=== PATIENT | male | born 1970 | race African-American/Black ===

== ENCOUNTER 2019-12-13 02:54 | Emergency (ER) | payer SELFPAY ==
[~2019-12-13] VITALS: Wt 65.8 kg
== END 2019-12-13 06:18 | disposition home or self-care (01) ==
LOC: ED 02:54
DX: T40.2X1A Poisoning by other opioids, accidental (unintentional), initial encounter (principal); F17.200 Nicotine dependence, unspecified, uncomplicated; Y92.89 Other specified places as the place of occurrence of the external cause

== ENCOUNTER 2020-09-04 11:00 | Inpatient (IN) | payer OTHER ==
[~2020-09-04] VITALS: Ht 175.2 cm; Wt 62.4 kg
--- NOTE | 2020-09-04 11:30 | NUR ---
A 50, admitted to , under the services of ISAIAS Govea DO with a diagnosis of ALCOHOL WITHDRAWAL. Chief complaint is ALCOHOL WITHDRAWAL. Patient arrived via ambulatory from [place]. Initial assessment completed. Vital signs taken and recorded. See assessment for past medical history, medications and allergies. Patient and/or family oriented to unit. [facility] visitation policy reviewed. Clothing/patient valuable form completed. LUCAS SOSA
--- NOTE | 2020-09-04 11:31 | NUR ---
PATIENT MEETS [facility]. CIWA=20. PATIENT IS GOING TO [facility] FOR HIS AFTERCARE PLAN. THEY WILL BE PROVIDEING TRANSPORTATION POST DISCHARGE. 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
[2020-09-04] MEDS ORDERED: TRAZODONE100 MG PO (11:35)
[2020-09-04] MEDS ORDERED: SEROQUEL100 MG PO (11:35)
[2020-09-04 11:53] VITALS: BP 127/68
[2020-09-04 12:00] LABS: BASO % 0.2 % (0.0-1.0); EOS # 0.1 10*3/uL (0.0-0.4); EOS % 1.7 % (1.0-4.0); HEMATOCRIT 42.5 % (42.0-52.0); LYMPH # 1.2 10*3/uL (1.3-4.4); LYMPH % 30.7 % (27.0-41.0); MEAN CELL VOLUME 69.6 fl (80.0-94.0); MEAN CORPUSCULAR HGB 21.6 pg (27.0-31.0); MEAN CORPUSCULAR HGB CONC 31.1 g/dl (33.0-37.0); MEAN PLATELET VOLUME 11.2 fl (9.6-12.3); MONO # 0.3 10*3/uL (0.1-1.0); MONO % 7.7 % (3.0-9.0); NEUT # 2.4 10*3/uL (2.3-7.9); NEUT % 59.5 % (47.0-73.0); PLATELET COUNT AUTOMATED 181 10*3/uL (130-400); RED BLOOD COUNT 6.11 10*6/uL (4.50-5.90); RED CELL DISTRI WIDTH 16.4 % (0-14.5)
[2020-09-04 12:15] LABS: ALBUMIN 3.3 gm/dl (3.1-4.5); ALKALINE PHOSPHATASE 65 U/L (45-117); BUN 20 mg/dl (7-24); CHLORIDE 108 mmol/L (98-107); CREATININE 1.04 mg/dL (0.70-1.30); POTASSIUM 3.7 mmol/L (3.5-5.1); SGOT/AST 52 IU/L (3-35); SGPT/ALT 47 U/L (12-78); SODIUM 140 mmol/L (136-145); TOTAL PROTEIN 7.1 gm/dL (6.4-8.2)
[2020-09-04 16:00] VITALS: BP 119/87
[2020-09-04 20:00] VITALS: BP 127/77
[2020-09-05] VITALS: BP 135/87
[2020-09-05 08:00] VITALS: BP 125/87
[2020-09-05 12:00] VITALS: BP 129/85
[2020-09-05 16:00] VITALS: BP 142/76
--- NOTE | 2020-09-05 18:26 | NUR ---
PATIENT REFUSES TO PROVIDE URINE SPECIMEN. THE PATIENT IS URINATING.
[2020-09-05 20:00] VITALS: BP 126/79
[2020-09-05 21:33] LABS: BILIRUBIN Negative (Negative); BLOOD Negative (Negative); CLARITY Clear (Clear); COLOR Yellow (Yellow); GLUCOSE Negative (Negative); KETONE Trace (Negative); LEUKO ESTERASE Negative (Negative); NITRITE Negative (Negative); SPECIFIC GRAVITY 1.025 (1.001-1.030)
[2020-09-05 21:41] LABS: URINE AMPHETAMINES > 1000 (1000ng/ml); URINE BARBITURATES < 200 (200ng/ml); URINE BENZODIAZEPINES > 200 (200ng/ml); URINE CANNABINOIDS (THC) < 50 (50ng/ml); URINE COCAINE > 300 (300ng/ml); URINE METHADONE < 300 (300ng/ml); URINE OPIATES < 300 (300ng/ml)
[2020-09-05 21:44] LABS: URINE PHENCYCLIDINE < 25 (25ng/ml)
[2020-09-05 21:50] LABS: BACTERIA TRACE; EPITHELIAL CELLS 0-2; MUCOUS 1+; RBC 0-2 rbc/hpf (0-2)
[2020-09-06] VITALS: BP 129/81
[2020-09-06 08:00] VITALS: BP 123/70
--- NOTE | 2020-09-06 09:24 | NUR ---
ASSESSMENT COMPLETE. pATIENT GIVEN ROBAXIN FOR RIGHT KNEE PAIN
[2020-09-06 12:00] VITALS: BP 130/78
[2020-09-06 16:00] VITALS: BP 131/78
[2020-09-06 20:00] VITALS: BP 119/79
[2020-09-07] VITALS: BP 130/75
[2020-09-07 08:00] VITALS: BP 113/74
--- NOTE | 2020-09-07 08:25 | NUR ---
[facility] STAFF IS WORKING ON SETTING UP TRANSPORTATION FOR PATIENT TO GO TO [facility]. BERNA VEGA B.A. THIRD MATE
[2020-09-07 12:00] VITALS: BP 120/70
[2020-09-07 16:00] VITALS: BP 111/75
[2020-09-07 20:00] VITALS: BP 105/64
[2020-09-08] VITALS: BP 110/65
[2020-09-08 03:48] VITALS: BP 118/78
[2020-09-08 06:35] LABS: BASO % 0.8 % (0.0-1.0); EOS # 0.1 10*3/uL (0.0-0.4); EOS % 3.8 % (1.0-4.0); HEMATOCRIT 41.6 % (42.0-52.0); LYMPH # 1.3 10*3/uL (1.3-4.4); LYMPH % 35.7 % (27.0-41.0); MEAN CELL VOLUME 69.7 fl (80.0-94.0); MEAN CORPUSCULAR HGB 21.4 pg (27.0-31.0); MEAN CORPUSCULAR HGB CONC 30.8 g/dl (33.0-37.0); MEAN PLATELET VOLUME 10.6 fl (9.6-12.3); MONO # 0.3 10*3/uL (0.1-1.0); MONO % 9.1 % (3.0-9.0); NEUT # 1.8 10*3/uL (2.3-7.9); NEUT % 50.1 % (47.0-73.0); PLATELET COUNT AUTOMATED 203 10*3/uL (130-400); RED BLOOD COUNT 5.97 10*6/uL (4.50-5.90); RED CELL DISTRI WIDTH 17.1 % (0-14.5); WHITE BLOOD COUNT 3.6 10*3/uL (4.8-10.8)
[2020-09-08 06:42] LABS: CREATININE 1.01 mg/dL (0.70-1.30)
--- NOTE | 2020-09-08 06:51 | NUR ---
LARGE EMESIS OF YELLOW LIQUID. COMPLETE BATH DONE AND LINENS CHANGED.
[2020-09-08 08:00] VITALS: BP 124/73
--- NOTE | 2020-09-08 09:42 | NUR ---
PATIENT WILL BE GOING TO [facility] ONCE DISCHARGED FROM [facility]. [facility] STAFF WILL CONTACT FACILITY ONCE PATIENT IS DISCHARGED. FAMILY REPORTS THAT THEY WILL PROVIDE TRANSPORATION IF NEEDED. PATIENT AGREES AND UNDERSTANDS HIS AFTERCARE PLAN. BERNA VEGA B.A. 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
--- NOTE | 2020-09-08 11:10 | NUR ---
NOTIFIED DR. MEADE OF POSITIVE ORTHOS. SEE NEW ORDER.
[2020-09-08 12:00] VITALS: BP 114/68
--- NOTE | 2020-09-08 15:26 | NUR ---
SPOKE WITH DASHAWN IN [facility] AND NOTIFIED HER OF CONSULT FOR [facility], FOR TRAZADONE MANAGEMENT.
[2020-09-08 15:33] LABS: BASO % 0.4 % (0.0-1.0); EOS # 0.1 10*3/uL (0.0-0.4); EOS % 2.6 % (1.0-4.0); LYMPH # 1.5 10*3/uL (1.3-4.4); LYMPH % 33.1 % (27.0-41.0); MEAN CELL VOLUME 69.8 fl (80.0-94.0); MEAN CORPUSCULAR HGB 21.6 pg (27.0-31.0); MONO # 0.3 10*3/uL (0.1-1.0); MONO % 6.5 % (3.0-9.0); NEUT # 2.6 10*3/uL (2.3-7.9); NEUT % 57.2 % (47.0-73.0); PLATELET COUNT AUTOMATED 205 10*3/uL (130-400); RED BLOOD COUNT 5.87 10*6/uL (4.50-5.90); RED CELL DISTRI WIDTH 17.2 % (0-14.5); WHITE BLOOD COUNT 4.6 10*3/uL (4.8-10.8)
[2020-09-08 15:57] LABS: ALBUMIN 2.9 gm/dl (3.1-4.5); ALKALINE PHOSPHATASE 76 U/L (45-117); BUN 18 mg/dl (7-24); CHLORIDE 109 mmol/L (98-107); POTASSIUM 3.7 mmol/L (3.5-5.1); SGOT/AST 30 IU/L (3-35); SGPT/ALT 44 U/L (12-78); SODIUM 141 mmol/L (136-145); TOTAL PROTEIN 6.4 gm/dL (6.4-8.2)
[2020-09-08 16:00] VITALS: BP 133/84
[2020-09-08 20:00] VITALS: BP 133/84; BP 133/86
--- NOTE | 2020-09-08 20:50 | NUR ---
PT REPORTED BODY ACHES, TREATED PT PER THE MAR.
[2020-09-09] VITALS: BP 137/85
--- NOTE | 2020-09-09 04:30 | NUR ---
PT DID NOT REPORT ANY MORE BODY ACHES AFTER BEING TREATED.
[2020-09-09 06:42] LABS: BASO % 0.6 % (0.0-1.0); EOS # 0.1 10*3/uL (0.0-0.4); EOS % 2.9 % (1.0-4.0); LYMPH # 1.6 10*3/uL (1.3-4.4); LYMPH % 33.7 % (27.0-41.0); MEAN CELL VOLUME 70.4 fl (80.0-94.0); MEAN CORPUSCULAR HGB 21.8 pg (27.0-31.0); MEAN PLATELET VOLUME 10.7 fl (9.6-12.3); MONO # 0.4 10*3/uL (0.1-1.0); MONO % 8.8 % (3.0-9.0); NEUT # 2.5 10*3/uL (2.3-7.9); NEUT % 53.6 % (47.0-73.0); PLATELET COUNT AUTOMATED 213 10*3/uL (130-400); RED BLOOD COUNT 5.82 10*6/uL (4.50-5.90); RED CELL DISTRI WIDTH 17.4 % (0-14.5); WHITE BLOOD COUNT 4.8 10*3/uL (4.8-10.8)
[2020-09-09 07:01] LABS: BUN 16 mg/dl (7-24); CHLORIDE 110 mmol/L (98-107); CREATININE 0.97 mg/dL (0.70-1.30); POTASSIUM 4.1 mmol/L (3.5-5.1); SODIUM 139 mmol/L (136-145)
--- NOTE | 2020-09-09 07:30 | NUR ---
TOOK OVER CARE OF PT AT THIS TIME. PT RESTING IN BED. RESPIRATIONS EASY AND UNLABORED ON ROOM AIR. NO S/S OF DISTRESS NOTED. NO COMPLAINTS VOICED. CALL LIGHT IN REACH.
[2020-09-09 08:00] VITALS: BP 121/69
[2020-09-09 12:00] VITALS: BP 126/79
--- NOTE | 2020-09-09 13:30 | NUR ---
Occupational Therapy evaluation completed on 5 with full evalution to follow. Precautions include impaired balance in standing. PT issued a wheeled walker for use at [facility] where patient will be discharge to today. Recommend supervision in functional mobility with wheeled walker until patient is more comfortable with the device. Thank you. Mavis Odonnell OTR/L
[2020-09-09] MEDS ORDERED: TRAZODONE50 MG PO (13:43)
--- NOTE | 2020-09-09 13:50 | NUR ---
PHYSICAL THERAPY Physical Therapy evaluation completed on 5th floor with full evaluation to follow, pt being discharged to inpatient [facility]TO[facility] program issued FWW for ambulation ed pt on use/safety/paperwork for FWW. Also ed Nsg to pass on information along to staff at facility reg new use of FWW and need for assist/supervision with AD. Recommend physical therapy per plan of care and follow up PT at discharge from facilty Thank you for this referral. Rebecca Mckeon PT
--- NOTE | 2020-09-09 14:21 | NUR ---
Spoke to PT/OT, patient needs a walker for ambulation. Attempted to reach Ivette in [facility] with no success re can the patient have PT at [facility]. Spoke to Eileen at [facility] re PT. [facility] does not offer PT services. Notified PT/OT. Faxed discharge instructions and clinical to [facility] as requested.
--- NOTE | 2020-09-09 14:40 | NUR ---
Spoke to Eileen at [facility] for transportation. Transportation has not been set up with them. She states she spoke to the patient's cousin who was going to bring patient but now doesn't have her car. [facility] will attempt to find transportation but patient needs to look for his own transportation. Nurse notified.
--- NOTE | 2020-09-09 14:42 | NUR ---
Discharge instructions reviewed with patient/family. Patient receptive and verbalizes understanding. Follow-up care arranged. Written instructions given to patient/family. HUNG RAMRIEZ
--- NOTE | 2020-09-09 14:48 | NUR ---
SPOKE WITH PT COUSIN SID AND SHE STATES THAT SHE IS ABLE TO PICK PATIENT UP AND DRIVE HIM TO [facility] IN 1-2 HOURS. WILL NOTIFY PATIENT.
[2020-09-09 16:00] VITALS: BP 128/79
--- NOTE | 2020-09-09 16:00 | NUR ---
PT LEAVES AT THIS TIME VIA W/C TO [facility] FOR TRANSPORTATION TO [facility].
== END 2020-09-09 16:00 | DRG 774 ==
LOC: 5E 11:00
PROVIDERS: Hospitalist; Internal Medicine; Student in an Organized Health Care Education/Training Program; ADMIT Internal Medicine; ATTEND Internal Medicine
DX: F10.230 Alcohol dependence with withdrawal, uncomplicated (principal); D72.819 Decreased white blood cell count, unspecified; D50.9 Iron deficiency anemia, unspecified; E87.8 Other disorders of electrolyte and fluid balance, not elsewhere classified; F14.20 Cocaine dependence, uncomplicated; F25.1 Schizoaffective disorder, depressive type; F10.220 Alcohol dependence with intoxication, uncomplicated; E44.1 Mild protein-calorie malnutrition; R74.01 Elevation of levels of liver transaminase levels; F90.9 Attention-deficit hyperactivity disorder, unspecified type; F31.70 Bipolar disorder, currently in remission, most recent episode unspecified; M15.9 Polyosteoarthritis, unspecified; I95.1 Orthostatic hypotension; F17.210 Nicotine dependence, cigarettes, uncomplicated; Z71.6 Tobacco abuse counseling; Z82.49 Family history of ischemic heart disease and other diseases of the circulatory system; Z88.1 Allergy status to other antibiotic agents; Z79.899 Other long term (current) drug therapy; Z68.20 Body mass index [BMI] 20.0-20.9, adult; F41.9 Anxiety disorder, unspecified